=== PATIENT | female | born 1970 | race Asian ===

== ENCOUNTER 2020-09-14 07:07 | Outpatient (CLI) | payer OTHER ==
[2020-09-14 15:40] LABS: BASOPHILS # (AUTO) 0.1 10^3/uL (0.0-0.1); BASOPHILS % (AUTO) 1.3 %; EOSINOPHILS # (AUTO) 0.4 10^3/uL (0.0-0.7); EOSINOPHILS % (AUTO) 7.2 %; HGB - HEMOGLOBIN 14.9 g/dL (12.0-16.0); LYMPHOCYTES # (AUTO) 2.1 10^3/uL (1.5-3.5); LYMPHOCYTES % (AUTO) 33.5 %; MEAN CORPUSCULAR HEMOGLOBIN 29.6 pg (27.0-31.0); MEAN CORPUSCULAR VOLUME 89.7 fL (81.0-99.0); MONOCYTES # (AUTO) 0.4 10^3/uL (0.0-1.0); MONOCYTES % (AUTO) 6.3 %; NEUTROPHILS # (AUTO) 3.2 10^3/uL (1.5-6.6); NEUTROPHILS % (AUTO) 51.4 %; PLT - PLATELET COUNT 317 10^3/uL (130-450); RED BLOOD COUNT 5.03 10^6/uL (4.20-5.40); RED CELL DISTRIBUTION WIDTH 12.3 % (12.0-15.0); WHITE BLOOD COUNT 6.2 x10^3/uL (4.8-10.8)
[2020-09-14 15:52] LABS: ALBUMIN 4.5 g/dL (3.2-5.5); ALBUMIN/GLOBULIN RATIO 1.5 (1.0-2.2); ALKALINE PHOSPHATASE 55 IU/L (42-121); ALT ALANINE AMINOTRANSFERASE 22 IU/L (10-60); AST ASPARTATE AMINOTRANSFERASE 21 IU/L (10-42); BILIRUBIN,TOTAL 0.6 mg/dL (0.2-1.0); BUN - BLOOD UREA NITROGEN 18 mg/dL (6-20); CALCIUM 9.3 mg/dL (8.5-10.3); CARBON DIOXIDE - CO2 26 mmol/L (21-32); CHLORIDE 102 mmol/L (101-111); CHOL/HDL RATIO 5.9 (<4.4); CHOLESTEROL 349 mg/dL; CREATININE 0.7 mg/dL (0.4-1.0); GLUCOSE 91 mg/dL (70-100); HDL CHOLESTEROL 59 mg/dL; LDL CHOLESTEROL,CALCULATED 246 mg/dL; LDL/HDL RATIO 4.2 (<4.4); SODIUM 138 mmol/L (135-145); TOTAL PROTEIN 7.6 g/dL (6.7-8.2); VLDL CHOLESTEROL 44 mg/dL
[2020-09-14 16:02] LABS: T4 (THYROXINE) 7.25 ug/dL (6.09-12.23)
[2020-09-14 16:05] LABS: THYROID STIMULATING HORMONE 3.52 uIU/mL (0.34-5.60)
[2020-09-14 16:12] LABS: TOTAL T3 1.03 ng/mL (0.87-1.78)
== END 2020-09-14 07:08 | disposition home or self-care (01) ==
LOC: LAB.S 07:07
PROVIDERS: ATTEND Registered Nurse
DX: R53.83 Other fatigue (principal); E78.5 Hyperlipidemia, unspecified; E06.3 Autoimmune thyroiditis
CPT/HCPCS: 36415; 80053; 80061; 83721; 84436; 84443; 84480; 85025

== ENCOUNTER 2021-01-29 07:04 | Outpatient (CLI) | payer OTHER ==
[2021-01-29 15:21] LABS: CHOL/HDL RATIO 6.8 (<4.4); CHOLESTEROL 335 mg/dL; HDL CHOLESTEROL 49 mg/dL; LDL CHOLESTEROL,CALCULATED 251 mg/dL; LDL/HDL RATIO 5.1 (<4.4); TRIGLYCERIDES 173 mg/dL; VLDL CHOLESTEROL 35 mg/dL
== END 2021-01-29 07:05 | disposition home or self-care (01) ==
LOC: LAB.S 07:04
PROVIDERS: ATTEND Registered Nurse
DX: E78.5 Hyperlipidemia, unspecified (principal)
CPT/HCPCS: 36415; 80061; 83721

== ENCOUNTER 2021-02-17 12:07 | Outpatient (CLI) | payer OTHER ==
[2021-02-17 18:52] LABS: T4 (THYROXINE) 8.62 ug/dL (6.09-12.23)
[2021-02-17 18:55] LABS: THYROID STIMULATING HORMONE 1.42 uIU/mL (0.34-5.60)
== END 2021-02-17 12:08 | disposition home or self-care (01) ==
LOC: LAB.S 12:07
PROVIDERS: ATTEND Registered Nurse
DX: E06.3 Autoimmune thyroiditis (principal)
CPT/HCPCS: 36415; 84436; 84443; 84480